=== PATIENT | male | born 1970 | race African-American/Black ===

== ENCOUNTER 2020-01-18 13:55 | Observation (INO) | payer OTHER, SELFPAY ==
[2020-01-18] VITALS (18 sets, daily range): BP systolic 109–149; BP diastolic 62–104; PULSE 83–94; RESP 13–21; TEMP 36.3–36.6; O2SAT 93–99; BMI 22.3
--- NOTE | ~2020-01-18 | XR_ITS ---
EXAMINATION: XR chest 1V portable EXAM DATE: 01/18/2020 15:18 INDICATION: Mid chest pain. Nausea. TECHNIQUE: Portable AP frontal chest x-ray was obtained. There is no prior study for comparison. FINDINGS: The lungs are clear. There are no pleural effusions. The cardiomediastinal silhouette is within normal limits. There is no pneumothorax suspected. The bones and soft tissues are unremarkab le. IMPRESSION: No acute cardiopulmonary findings. Reviewed, dictated and finalized at location B.
--- NOTE | 2020-01-18 14:14 | ECG_ITS ---
Measurements Intervals [place] Rate: 87 P: 62 [place]: 134 QRS: 76 QRSD: 94 T: 56 QT: 367 QTc: 443 Interpretive Statements SINUS RHYTHM VENTRICULAR PREMATURE COMPLEXES POSSIBLE LEFT ATRIAL ENLARGEMENT BORDERLINE R WAVE PROGRESSION, ANTERIOR LEADS BORDERLINE ST-T WAVE ABNORMALITY- DIFFUSE LEADS BORDERLINE ECG Electronically Signed On 01-18-2020 14:49:28 CDT by Rell Fountain D.O.
[2020-01-18] MEDS: ONDANSETRON INJ 4 MG/2 ML VIAL IV PUSH ×2 (14:31→15:13)
[2020-01-18] MEDS: FAMOTIDINE 20 MG/2 ML VIAL IV PUSH (14:31)
[2020-01-18] MEDS: MORPHINE SULFATE 4 MG/ML INJ IV PUSH (14:31)
[2020-01-18 14:36] LABS: Eosinophils Absolute Auto 0.1 K/mm3 (0-0.3); Eosinophils Percent Auto 0.6 % (0-4.4); Hematocrit 41.1 % (42.0-52.0); Hemoglobin 13.8 g/dL (14.0-18.0); Immature Granulocyte Absolute 0.06 K/mm3 (0.00-0.031); Immature Granulocyte Percent A 0.7 % (0-0.5); Lymphocytes Absolute Auto 1.17 K/mm3 (0.9-3.2); Lymphocytes Percent Auto 12.9 % (18.3-44.2); Mean Corpuscular HGB Conc 33.6 g/dl (32-36); Mean Corpuscular Hemoglobin 29.6 pg (26-34); Mean Platelet Volume 12.3 fl (7.4-10.4); Monocytes Absolute Auto 0.5 K/mm3 (0.1-0.6); Neutrophils Absolute Auto 7.4 K/mm3 (1.3-6.7); Neutrophils Percent Auto 80.8 % (45.5-73.1); Platelet Count Result 197 k/mm3 (150-375); Red Blood Count 4.67 M/mm3 (4.6-6.20); Red Cell Distribution Width 12.5 % (11.5-14.5); White Blood Count 9.1 K/mm3 (4.5-10.0)
--- NOTE | 2020-01-18 14:40 | ECG_ITS ---
Measurements Intervals [place] Rate: 80 P: 63 [place]: 146 QRS: 80 QRSD: 90 T: 68 QT: 383 QTc: 442 Interpretive Statements SINUS RHYTHM LEFT ATRIAL ENLARGEMENT BORDERLINE R WAVE PROGRESSION, ANTERIOR LEADS BORDERLINE ST-T WAVE ABNORMALITY- INF/LAT LEADS BASELINE WANDER- AVR, AVL, AVF BORDERLINE ECG Electronically Signed On 01-18-2020 14:50:55 CDT by Rell Fountain D.O.
[2020-01-18 14:47] LABS: INR 1.1; Prothrombin Time 14.2 Seconds (11.1-14.7)
[2020-01-18 14:49] LABS: Alanine Aminotransferase 20 U/L (4-50); Albumin Level 5.3 g/dL (3.5-5.1); Alkaline Phosphatase 119 U/L (38-126); Aspartate Amino Transferase 27 U/L (17-59); Bilirubin,Total 1.2 mg/dL (0.2-1.3); Blood Urea Nitrogen 18 mg/dL (9-20); Carbon Dioxide 31 mmol/L (22-30); Chloride 98 mmol/L (98-107); Estimated CRCL calculation 83 ml/min; Estimated Glomerular Filt Rate > 60; Glucose 260 mg/dL (75-110); Potassium 3.8 mmol/L (3.4-5.0); Sodium 141 mmol/L (137-145)
--- NOTE | 2020-01-18 14:50 | ED.CHESTPAIN ---
HPI - Chest Pain General Chief Complaint: Chest Pain Stated Complaint: CP Time Seen by Provider: 01/18/20 14:03 History of Present Illness HPI narrative: Patient presents via EMS for chest pain at work. He had a stent placed in July at [facility]. His chest pain started a half an hour prior to presentation at work. It was accompanied by shortness of breath and nausea and vomiting. He said it is on the left side. Gives it an 8 out of 10. He smokes cigarettes but denies drinking or drugs. MD complaint: chest pain Pertinent past history: coronary artery disease Onset (ago): minute(s) Timing of current episode: constant Prior episodes: Yes Onset: other (At work) Related Data Allergies Allergy/AdvReac Type Severity Reaction Status Date / Time No Known Allergies Allergy Verified 01/18/20 14:41 Review of Systems Review of Systems: Narrative: Review of systems was difficult because patient had reluctance or difficulty answering questions. See HPI for relevant information. All systems reviewed & are unremarkable except as noted in HPI and below PMFSH Social History Social History (Updated 01/18/20 @ 14:54 by Nirmala Goodman MD) Smoking status: Current every day smoker Alcohol intake: never Substance use: never Exam Narrative: Exam Narrative: GENERAL: Well-appearing, well-nourished, and in moderate distress. HEAD: Normocephalic, atraumatic. EYES: PERRLA and EOMI. ENT: Nares clear, no rhinorrhea or epistaxis. Mucous membranes moist. NECK: Supple. CHEST: Clear to auscultation. No respiratory distress. Deep cough without covering his mouth. HEART: Regular rate and rhythm. No murmur heard. Normal peripheral pulses. ABDOMEN: Soft, nontender, nondistended, normal active bowel sounds. EXTREMITIES: Normal range of motion. No edema. SKIN: Warm, dry, no rash. NEURO: No focal deficits. Alert and oriented x3. PSYCH: She gives poor eye contact and has difficulty answering questions.. Course Reevaluation(s) Reevaluation #1: Went back in the room to tell the patient that he was being admitted into check on his chest pain. He has had was tightly tucked under the covers. He only would grunt affirmation to my announcements. Date: 01/18/20 Time: 16:22 Consultations Consultation #1: Call Dr. Yo who is on interventional cardiology call us.Benson came down to check the EKG and see the patient. She was able to pull the EKG's From [facility] and they look similiar.She will speak to Dr. Yo. Date: 01/18/20 Time: 15:00 Consultation #2: I had consulted Dr. Munoz on the patient, and he came down to see the patient. But then Ms. Knowles called to give me further information on the patient, on his noncompliance with medication and follow-up appointments. I told her I consulted Dr. Sarmiento, and should I have consulted Dr. Yo. She said yes so I switched to consult to Dr. Yo, and informed Dr. Sarmiento. Date: 01/18/20 Time: 16:24 Vital Signs Vital signs: Vital Signs Temperature 97.4 F L 01/18/20 14:00 Pulse Rate 88 01/18/20 14:00 Respiratory Rate 16 01/18/20 14:00 Blood Pressure 142/104 H 01/18/20 14:00 Pulse Oximetry 97 01/18/20 14:00 Temperature 97.4 F L 01/18/20 14:00 Pulse Rate 91 01/18/20 16:00 Respiratory Rate 14 01/18/20 16:00 Blood Pressure 149/94 H 01/18/20 16:00 Pulse Oximetry 99 01/18/20 16:00 MDM - Chest Pain Medical Records Data Attestation: I reviewed the patient's medical records. Lab Data Attestation: I reviewed the patient's lab results. Result diagrams: 01/18/20 14:28 01/18/20 14:28 Labs: Lab Results 01/18/20 01/18/20 01/18/20 Range/Units 14:28 14:28 14:28 WBC 9.1 (4.5-10.0) K/mm3 RBC 4.67 (4.6-6.20) M/mm3 Hgb 13.8 L (14.0-18.0) g/dL Hct 41.1 L (42.0-52.0) % MCV 88.0 (80-100) fl MCH 29.6 (26-34) pg MCHC 33.6 (32-36) g/dl RDW 12.5 (11.5-14.5) % Plt Count 197 (150-375) k/mm3
[2020-01-18 15:00] LABS: Troponin I 0.022 ng/mL (0.000-0.034)
[2020-01-18 15:03] LABS: NT Pro B Type Natriuretic Pept 1060 PG/ML (5-100)
--- NOTE | 2020-01-18 16:14 | PM.CNCAR ---
Assessment and Plan Assessment and plan (1) Coronary artery disease: Qualifiers: Associated angina: with unspecified angina Coronary Disease-Associated Artery/Lesion type: unspecified vessel or lesion type [place] vs. transplanted heart: [place] heart Qualified Code(s): I25.119 - Atherosclerotic heart disease of [place] coronary artery with unspecified angina pectoris <Yaz Knowles APRN - Last Filed: 01/19/20 08:53> Code(s): I25.10 - Atherosclerotic heart disease of [place] coronary artery without angina pectoris <Yaz Knowles APRN - Last Filed: 01/19/20 08:53> Status: Acute <Yaz Knowles APRN - Last Filed: 01/19/20 08:53> (2) Chest pain: Onset Date: ~01/18/20 <Yaz Knowles APRN - Last Filed: 01/19/20 08:53> Qualifiers: Chest pain type: unspecified Qualified Code(s): R07.9 - Chest pain, unspecified <Yaz Knowles APRN - Last Filed: 01/19/20 08:53> Code(s): R07.9 - Chest pain, unspecified <Yaz Knowles APRN - Last Filed: 01/19/20 08:53> Status: Acute <Yaz Knowles APRN - Last Filed: 01/19/20 08:53> Assessment and Plan: Chest pressure while at work with associated nausea, vomiting and shortness of breath EKG personally reviewed with Dr Yo anterior myocardial infarction, probably recent but no ST elevation MD First troponin negative. Pressure improved with morphine and nitrates History: 1st episode October 2018 when he had a PTCA and PCI to the LAD with a drug-eluting stent and PTCA of a diagonal branch. Due to his noncompliance he quit taking his dual anti-platelet therapy and had stent thrombosis involving the LAD stent in June 2019 he had PTCA. At that time the diagonal was not treated and was occluded. Due to the development of an ischemic cardiomyopathy was taken to the cardiac catheterization lab and at PCI was done of the large diagonal branch which was serving as a dual LAD system an after the IFR of the circumflex branch the circumflex was stented with a drug-eluting stent and a PTCA of the diagonal branch was done. 09/21 2019 [address] with an [address]-elevation myocardial infarction and there was stent thrombosis of the LAD. There seemed to be some size mismatch in under deployment of the stent on the basis of IV is. PTCA to the LAD was performed and post PTCA I this showed a well apposed stent. PCI of the diagonal branch with a drug-eluting stent. There was moderate stenosis in the mid circumflex, small obtuse marginal branch and the proximal and distal right coronary artery. Continue to trend troponins. EKG in the morning. NPO after midnight pending further evaluation by interventionalist in the morning. <Yaz Knowles APRN - Last Filed: 01/19/20 08:53> (3) Ischemic cardiomyopathy: Onset Date: ~07/16/19 <Yaz Knowles APRN - Last Filed: 01/19/20 08:53> Code(s): I25.5 - Ischemic cardiomyopathy <Yaz Knowles APRN - Last Filed: 01/19/20 08:53> Status: Acute <Yaz Knowles APRN - Last Filed: 01/19/20 08:53> Assessment and Plan: History of coronary artery disease as above. Echocardiogram 09/21/2019 done at an [facility] reveals a an ejection fraction 20-25%. Anterior, septal brand show severe hypokinesis. Mid to distal lateral wall showed moderate hypokinesis. Trace pericardial effusion. He was referred to Dr. Palafox, scenic arts supervisor, for implantation of an ICD however has not had a follow-up echocardiogram to re-evaluate his ejection fraction. He also is not shown for appointments with his office and they will no longer be reaching out to schedule appointments. <Yaz Knowles APRN - Last Filed: 01/19/20 08:53> Additional Plan Plan discussed with by phone at 3:16 p.m. on 01/18/2020 <Yaz Knowles APRN - Last Filed: 01/19/20 08:53> History of Present Illness History of Present Illness Consult date/time: 01/18/20 14:39 Seen in the
[2020-01-18 16:20] LABS: Add Urine Microscopic? YES; Appearance Urine Clear (Clear); Bilirubin Urine Negative (Negative); Blood Urine 1+ (Negative); Color Urine Yellow (Yellow); Glucose Urine UA 3+ mg/dL (Negative); Hyaline Casts Urine 20-29 /lpf; Ketones Urine 1+ mg/dL (Negative); Leukocyte Esterase Ur Negative LEU/UL (Negative); Mucus Urine Few /lpf; Nitrate Urine Negative (Negative); Protein Urine 1+ mg/dL (Negative); RBC Urine 0-2 /hpf (0-2); Specific Grav Ur 1.017 (1.001-1.035); Squamous Epithelial Cell Urine Rare /hpf (Few); WBC Urine 0-3 /hpf
[2020-01-18 16:34] LABS: Amphetamine Screen Urine Negative (Negative); Barbiturate Screen Urine Negative (Negative); Benzodiazepines Screen Urine Negative (Negative); Cannabinoid Screen Urine Positive (Negative); Cocaine Screen Urine Negative (Negative); Methadone Screen Urine Negative (Negative); Opiate Screen Urine Positive (Negative); Phencyclidine Screen Urine Negative (Negative)
--- NOTE | 2020-01-18 17:46 | PC.NURSE ---
This patient, Latricia Daigle, was admitted to IMU Room 212-01 at 1710 on 01/18/2020. Patient/family oriented to hospital policies and general routines including ID bracelet, bed and alarms, visiting hours, pain management, procedures, bathroom and other care routines, personal items, smoking policy, room service/diet, and visiting hours. Valuables list has been completed. Information on how to activate the Rapid Response Team has been discussed. Patient/Family are encouraged to report perceived risks to care and to ask questions if they do not understand what they are told or what they should do.
[2020-01-18 18:07] LABS: Glucose Point of Care 250 (65-105)
[2020-01-18 18:08] LABS: Troponin I 0.012 ng/mL (0.000-0.034)
[2020-01-18 20:54] LABS: Troponin I 0.017 ng/mL (0.000-0.034)
--- NOTE | 2020-01-18 21:25 | PM.IMHP ---
H&P: HPI History of Present Illness Chief complaint: chest pain and new CHF Narrative: Latricia Daigle is a 49 year old male to the emergency room today because he had complaints of chest pain at work. 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 The patient has a history of going to [facility]. First episode was October 2018 when he had a PTCA and PCI to the LAD with drug-eluting stent and PTCA of diagonal branch. Patient was noncompliance with his anti-platelet therapy and had stent thrombosis involving the LAD stent June of 2019 he had a PTCA at that time the diagonal was not treated was occluded. Due to the development of mixed hemic cardiomyopathy was taken to cardiac cardiac cath technician and a PCI was done of the large diagonal branch which was serving as a dual LAD system and after that the circumflex was stented with a drug-eluting stent and PTCI of the diagonal branch was done. Do [address]-elevation myocardial infarction and was stent thrombosis of the LAD. And Benson saw the patient and the patient was not offering up much information. Records were obtained from [facility] and they will be on the chart. Echo on 09/21/2019 shows an EF of 20-25%.. When I saw the patient he was covered up under the blanket however his head and was not offering me much information. But he did state that he was not having any discomfort at this time. Troponins have all been negative. He has a nitro patch on. He was given aspirin, morphine, Pepcid, Zofran and the nitro patch. Patient is resting quietly without difficulty. EKG was read per metal tank erector as left atrial enlargement. Borderline R-wave progression, anterior leads borderline ST T wave normal T inferior lateral leads baseline wander AVR aVL AVF borderline EKG. Patient told me that he is using all of his medications that he is prescribed now. 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 No acute cardiopulmonary findings. Please see and Mono maynard and his records from [facility]. Date of service 01/18/2020 Review of Systems Review of Systems: Narrative: Patient is not offering of much information but states he is chest pain-free at this time. No nausea no vomiting no diarrhea no fever chills. All systems reviewed & are unremarkable except as noted in HPI and below Constitutional: Constitutional: Reports as per HPI and Reports no additional constitutional complaints Eyes: Eyes: Reports as per HPI and Reports no additional eye complaints ENT: Reports system reviewed and no additional complaints, except as documented and Reports Normal hearing present Cardiovascular: Cardiovascular: Reports no additional cardiovascular complaints Respiratory: Respiratory: Reports no additional respiratory complaints and Reports no additional respiratory complaints Gastrointestinal: Gastrointestinal: Reports as per HPI and Reports no additional gastrointestinal complaints Musculoskeletal: Musculoskeletal: Reports no additional musculoskeletal complaints Integumentary/Breasts: Skin/Breast: Reports system reviewed and no additional complaints, except as docu and Reports as per HPI Neurologic: Reports system reviewed and no additional complaints, except as documented, Reports as per HPI and Reports Normal hearing present Psychiatric: Psychiatric: Reports no additional psychiatric complaints and Reports as per HPI Endocrine: Endocrine: Reports no additional endocrine complaints Hematologic/Lymphatic: Hematologic/Lymphatic: Reports no additional hematologic/lymphatic complaints Allergic/Immunologic: Allergic/Immunologic: Reports no additional allergic/immunologic complaints PMFSH Past Medical History Medical History Coronary artery disease ACS October 2018 with drug-eluting stent to LAD PTCA of the diagonal branch July 15, 2019: Stent thrombosis LAD stent with intervention. July 28, 2019: PCI di
[2020-01-18] MEDS: TICAGRELOR 90 MG TABLET PO (22:16)
[2020-01-19] VITALS: PULSE 83
[2020-01-19 04:00] VITALS: BP 105/62; PULSE 71; PULSE 72; RESP 18; TEMP 36.8; O2SAT 98
[2020-01-19 04:46] LABS: Basophils Percent Auto 0.1 % (0.2-1.2); Eosinophils Percent Auto 0.3 % (0-4.4); Immature Granulocyte Absolute 0.06 K/mm3 (0.00-0.031); Immature Granulocyte Percent A 0.6 % (0-0.5); Lymphocytes Absolute Auto 2.33 K/mm3 (0.9-3.2); Lymphocytes Percent Auto 21.4 % (18.3-44.2); Mean Corpuscular HGB Conc 33.3 g/dl (32-36); Mean Corpuscular Hemoglobin 29.9 pg (26-34); Mean Corpuscular Volume 89.7 fl (80-100); Mean Platelet Volume 12.1 fl (7.4-10.4); Monocytes Absolute Auto 0.8 K/mm3 (0.1-0.6); Monocytes Percent Auto 7.2 % (2.6-8.5); Neutrophils Absolute Auto 7.7 K/mm3 (1.3-6.7); Neutrophils Percent Auto 70.4 % (45.5-73.1); Platelet Count Result 193 k/mm3 (150-375); Red Blood Count 4.35 M/mm3 (4.6-6.20); Red Cell Distribution Width 12.6 % (11.5-14.5); White Blood Count 10.9 K/mm3 (4.5-10.0)
[2020-01-19 04:59] LABS: Lactic Acid 0.8 mmol/L (0.7-2.1)
[2020-01-19 05:02] LABS: Alanine Aminotransferase 13 U/L (4-50); Albumin Level 4.1 g/dL (3.5-5.1); Alkaline Phosphatase 91 U/L (38-126); Aspartate Amino Transferase 17 U/L (17-59); Blood Urea Nitrogen 19 mg/dL (9-20); CRP < 0.5 mg/dL (<1.0); Calcium 9.2 mg/dL (8.4-10.2); Carbon Dioxide 31 mmol/L (22-30); Chloride 100 mmol/L (98-107); Estimated CRCL calculation 85 ml/min; Estimated Glomerular Filt Rate > 60; Glucose 180 mg/dL (75-110); Magnesium 2.2 mg/dL (1.6-2.3); Potassium 3.7 mmol/L (3.4-5.0); Sodium 136 mmol/L (137-145)
[2020-01-19 05:55] LABS: Lipase < 10 U/L (23-300)
[2020-01-19 06:00] VITALS: PULSE 73
[2020-01-19 06:05] LABS: Thyroid Stimulating Hormone Reflex 0.105 uIU/mL (0.465-4.68)
[2020-01-19 07:49] LABS: Free T4 Free Thyroxine Reflex 1.08 ng/dL (0.78-2.19)
[2020-01-19 07:52] LABS: Glucose Point of Care 170 (65-105)
[2020-01-19 08:00] VITALS: PULSE 70; PULSE 71; RESP 16; O2SAT 98
[2020-01-19 08:03] VITALS: BP 91/57; PULSE 71; RESP 16; TEMP 36; O2SAT 98
[2020-01-19] MEDS: ATORVASTATIN 40 MG TABLET PO (08:13)
[2020-01-19] MEDS: ASPIRIN 81 MG ENTERIC TABLET PO (08:13)
[2020-01-19] MEDS: TICAGRELOR 90 MG TABLET PO (08:13)
--- NOTE | 2020-01-19 09:14 | PM.PNCARD ---
Progress Note: A&P Assessment and Plan (1) Coronary artery disease: Qualifiers: Associated angina: with unspecified angina Coronary Disease-Associated Artery/Lesion type: unspecified vessel or lesion type [place] vs. transplanted heart: [place] heart Qualified Code(s): I25.119 - Atherosclerotic heart disease of [place] coronary artery with unspecified angina pectoris Code(s): I25.10 - Atherosclerotic heart disease of [place] coronary artery without angina pectoris Status: Acute Assessment and Plan: Patient has been ruled out for [place] by serial negative cardiac biomarkers. He is currently asymptomatic. Continue current medical regimen including dual antiplatelet therapy with aspirin and ticagrelor; bisoprolol, lisinopril and statin. patient does not have any significant volume overload at present. His blood pressures are relatively low. Will decrease dose of furosemide to 60 mg p.o. q.a.m.. Monitor ins and outs. (2) Noncompliance: Code(s): Z91.19 - Patient's noncompliance with other medical treatment and regimen Status: Acute Assessment and Plan: spoke at length with the patient about importance of medication compliance and outpatient follow-up. He follows up with at [facility]. Patient was advised to make an appointment after discharge from the hospital and follow up on a regular basis. He verbalized understanding. (3) Ischemic cardiomyopathy: Onset Date: ~07/16/19 Code(s): I25.5 - Ischemic cardiomyopathy Status: Acute Assessment and Plan: Management as above. Patient is presumably scheduled to undergo ICD placement. He was advised to keep an appointment with his Brim Cutter. (4) Tobacco use: Code(s): Z72.0 - Tobacco use Status: Acute Assessment and Plan: Smoking cessation counseling was done. Subjective Date/time seen: 01/19/20 09:14 Date of service-01/19/2020 Chief complaint: Chest pain Interval history: 49-year-old male with known CAD, history of PCI/stenting; ischemic cardiomyopathy admitted to the hospital with chest pain. He has been ruled out for [place] by serial negative cardiac biomarkers. Patient has history of noncompliance. Patient reports resolution of chest discomfort. No dyspnea at rest. On telemetry, patient is in sinus rhythm with occasional PVCs, no sustained ventricular arrhythmias. Exam Const: General: no acute distress, alert and awake HENMT: Head: normocephalic and atraumatic Ears: hearing grossly normal bilaterally and external ears normal General nose exam: Normal external nose present and no epistaxis Face and sinus: normal facial exam and no ecchymosis Mouth: Yes tongue normal and Yes moist mucous membranes Teeth and gingiva: dentition normal Eyes: Conjunctivae: conjunctivae normal Sclera: sclerae normal Pupils: Equal, round and reactive pupils present EOM: EOMs intact bilaterally Neck: Neck: normal visual inspection, supple and no JVD Thyroid: thyroid normal Carotids: normal carotid upstroke Resp: Effort & Inspection: normal respiratory effort and able to speak in complete sentences Auscultation: diminished lung sounds Cardio: Jugular venous distension: no JVD Rate: regular rate Rhythm: regular rhythm Heart sounds: S1 normal heart sound present and S2 normal heart sound present GI: Inspection: normal to inspection GI Palp: No abdominal tenderness Auscultation: normal bowel sounds Skin: Other: no rash on exposed areas, no cyanosis Neuro: Cranial nerves: Yes Equal, round and reactive pupils present and Yes Normal hearing present Other: alert, oriented, no major focal deficits on gross neurological examination Extrem: Other: no edema, no cyanosis, no major deformities Psych: Appearance: grossly normal Mental Status: mental status grossly normal Objective Data Vital Signs Vital Signs: Vital Signs - 24 hr 01/18/20 14:00 01/18/20 14:28 12/28
--- NOTE | 2020-01-19 10:01 | PM.DS ---
DS: Admitting Diagnosis Admitting Diagnosis Admitting Diagnosis: Chest pain, unspecified DS: Discharge Diagnosis Discharge Diagnosis (1) Chest pain: Onset Date: ~01/18/20 Qualifiers: Chest pain type: unspecified Qualified Code(s): R07.9 - Chest pain, unspecified Code(s): R07.9 - Chest pain, unspecified Status: Acute Assessment and Plan: Patient's troponins are negative x3. He does have a nitro paste on any states that he is not having any further complaints of discomfort. Cardiology has been consulted. We do have his records from [facility] that are on the chart. The patient will be NPO after midnight for possibility of intervention tomorrow. He will be evaluated by the interventionalist while. 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 (3) Ischemic cardiomyopathy: Onset Date: ~07/16/19 Code(s): I25.5 - Ischemic cardiomyopathy Status: Acute Assessment and Plan: The patient's echo listed on his paperwork from [facility] was on it 09/21/2019 with an EF of 20-25%. Anterior septal wall shows severe hypokinesis. Mid to distal lateral wall showed moderate hypokinesis trace pericardial effusion. 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 Continue lisinopril. (4) Anemia: Qualifiers: Anemia type: unspecified type Qualified Code(s): D64.9 - Anemia, unspecified Code(s): D64.9 - Anemia, unspecified Status: Acute Assessment and Plan: Patient is only slightly anemic will continue to monitor. The patient is on Brilinta. (5) Coronary artery disease: Qualifiers: Associated angina: with unspecified angina Coronary Disease-Associated Artery/Lesion type: unspecified vessel or lesion type [place] vs. transplanted heart: [place] heart Qualified Code(s): I25.119 - Atherosclerotic heart disease of [place] coronary artery with unspecified angina pectoris Code(s): I25.10 - Atherosclerotic heart disease of [place] coronary artery without angina pectoris Status: Acute Assessment and Plan: The patient has had multiple stents and has had some noncompliance. Continue with aspirin and atorvastatin and Brilinta. (6) Systolic congestive heart failure: Code(s): I50.20 - Unspecified systolic (congestive) heart failure Status: Chronic Assessment and Plan: See above ischemic cardiomyopathy. Continue with lisinopril and Lasix. The patient has had some problems with metoprolol in the past where he had some shortness of breath during sexual activity. The patient is now on bisoprolol. (7) Hyperlipidemia: Code(s): E78.5 - Hyperlipidemia, unspecified Status: Acute Assessment and Plan: Continue with atorvastatin. DS: Summary Hospital Course Reason for hospitalization: Latricia Daigle is a 49 year old male to the emergency room today because he had complaints of chest pain at work. 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 The patient has a history of going to [facility]. First episode was October 2018 when he had a PTCA and PCI to the LAD with drug-eluting stent and PTCA of diagonal branch. Patient was noncompliance with his anti-platelet therapy and had stent thrombosis involving the LAD stent June of 2019 he had a PTCA at that time the diagonal was not treated was occluded. Due to the development of mixed hemic cardiomyopathy was taken to cardiac clinical laboratory service teacher and a PCI was done of the large diagonal branch which was serving as a dual LAD system and after that the circumflex was stent
--- NOTE | 2020-01-19 10:11 | PC.NURSE ---
Addendum entered by Brittany Mi RN 01/19/20 10:16: Additionally, patient refused remaining morning medications. Original Note: Patient discharge order obtained, however, unwilling to wait for discharge instructions to be completed. Patient iv removed by staff. Patient left room and advised he was leaving. This nurse advised that paperwork was being processed, however, patient unwilling to wait for instructions. Patient refused to wear mask. This nurse escorted patient to lobby. No distress noted, no complaints of chest pain, no shortness of breath, patient oriented x4. Dr Dunn advised. Krystal Harden RN and Marcela Monroe RN notified.
[2020-01-19 11:43] LABS: Total Triiodothyronine (T3) 1.06 NG/ML (0.97-1.69)
== END 2020-01-19 10:00 | disposition home or self-care (01) ==
LOC: ANHED 15:27 → ANHIMU 16:16
PROVIDERS: Nurse Practitioner; Admitting Provider Internal Medicine; Emergency Provider Emergency Medicine; Visit Provider Family Medicine
DX: R07.9 Chest pain, unspecified (principal); I50.20 Unspecified systolic (congestive) heart failure; R06.02 Shortness of breath; D64.9 Anemia, unspecified; E78.5 Hyperlipidemia, unspecified; E11.49 Type 2 diabetes mellitus with other diabetic neurological complication; F12.90 Cannabis use, unspecified, uncomplicated; F17.210 Nicotine dependence, cigarettes, uncomplicated; I25.5 Ischemic cardiomyopathy; I25.119 Atherosclerotic heart disease of native coronary artery with unspecified angina pectoris; I25.2 Old myocardial infarction; I11.0 Hypertensive heart disease with heart failure; Z79.4 Long term (current) use of insulin; Z95.5 Presence of coronary angioplasty implant and graft; Z91.19 Patient's noncompliance with other medical treatment and regimen
CPT/HCPCS: 36415; 71045; 80053; 80307; 81001; 83605; 83690; 83735; 83880; 84439; 84443; 84480; 84484; 85025; 85610; 86140; 93005; 96374; 96375; 96376; 99285; A9270; G0378; G0379; J2270; J2405